=== PATIENT | male | born 1990 | race Caucasian/White ===

== ENCOUNTER 2018-12-13 13:55 | Emergency (ER) | payer MEDICAID ==
[~2018-12-13] VITALS: Ht 175.3 cm; Wt 77.3 kg
[2018-12-13 14:01] VITALS: BP 142/87; Ht 175.3 cm; Wt 77.3 kg
[2018-12-13 14:27] LABS: BASOPHILS 0.8 % (0-2); EOSINOPHILS 2.8 % (0-7); HEMATOCRIT 44.4 % (42.0-54.0); HEMOGLOBIN 14.9 g/dL (13.5-17.5); IMMATURE GRANULOCYTES 3.2 % (0-5); LYMPHOCYTES 20.7 % (15-50); MCH 30.3 pg (26.0-34.0); MCHC 33.6 g/dL (31.0-37.0); MCV 90.2 fL (80.0-100.0); MEAN PLATELET VOLUME 11.7 fL (7.4-10.4); MONOCYTES 9.9 % (2-11); NEUTROPHILS 62.6 % (40-80); RBC 4.92 10x6/uL (4.20-6.10); RDW 13.1 % (11.5-14.5); WBC 9.8 10x3/uL (4.8-10.8)
[2018-12-13 14:29] LABS: PLATELET COUNT 218 10x3/uL (130-400)
[2018-12-13 14:40] LABS: ALBUMIN 3.6 g/dL (3.4-5.0); ALKALINE PHOSPHATASE 51 U/L (46-116); ALT (SGPT) 117 U/L (10-68); BILIRUBIN - TOTAL 0.22 mg/dL (0.2-1.3); CALC OSMOLALITY 286 mosm/kg (275-300); CALCIUM 8.5 mg/dL (8.5-10.1); CARBON DIOXIDE 26.7 mmol/L (21.0-32.0); CHLORIDE - SERUM 104 mmol/L (98-107); CREATININE - SERUM 0.9 mg/dL (0.6-1.3); GLUCOSE 110 mg/dL (74-106); PROTEIN - SERUM 7.5 g/dL (6.4-8.2); SODIUM 142 mmol/L (136-145); UREA NITROGEN 20 mg/dL (7-18); eGFR NON AFRICAN AMERICAN > 90 mL/min (90-120)
[2018-12-13] MEDS ORDERED: ZPAK PO (17:10)
[2018-12-13] MEDS ORDERED: ALBUTEROL SULF8.5 GM INH (17:10)
== END 2018-12-13 17:40 | disposition home or self-care (01) ==
LOC: D.ER 13:55
PROVIDERS: Family Medicine
DX: J40 Bronchitis, not specified as acute or chronic (principal)

== ENCOUNTER 2019-08-23 13:15 | Emergency (ER) | payer SELFPAY ==
[~2019-08-23] VITALS: Ht 175.3 cm; Wt 75.0 kg
[~2019-08-23 13:15] MED LIST: ALBUTEROL SULF8.5 GM INH; ZPAK PO
[2019-08-23 13:29] VITALS: Ht 175.3 cm; Wt 75.0 kg
[2019-08-23 14:05] VITALS: BP 121/66
== END 2019-08-23 14:06 | disposition home or self-care (01) ==
LOC: D.ER 13:15
DX: M21.942 Unspecified acquired deformity of hand, left hand (principal); M25.512 Pain in left shoulder; W19.XXXA Unspecified fall, initial encounter

== ENCOUNTER 2019-10-12 17:56 | Emergency (ER) | payer SELFPAY ==
[~2019-10-12] VITALS: Ht 175.3 cm; Wt 68.2 kg
[2019-10-12 17:59] VITALS: BP 115/77; Ht 175.3 cm; Wt 68.2 kg
[2019-10-12] MEDS ORDERED: TORADOL10 MG PO (18:50)
== END 2019-10-12 19:25 | disposition home or self-care (01) ==
LOC: D.ER 17:56
DX: S62.202A Unspecified fracture of first metacarpal bone, left hand, initial encounter for closed fracture (principal); X58.XXXA Exposure to other specified factors, initial encounter; Y93.9 Activity, unspecified; Y92.149 Unspecified place in prison as the place of occurrence of the external cause

== ENCOUNTER 2020-04-04 10:52 | Emergency (ER) | payer SELFPAY ==
[~2020-04-04] VITALS: Ht 175.3 cm; Wt 72.7 kg
[~2020-04-04 10:52] MED LIST changes: +TORADOL10 MG PO
[2020-04-04 10:58] VITALS: Ht 175.3 cm; Wt 72.7 kg
[2020-04-04] MEDS ORDERED: HYDROCODON-ACE1 EAC7 PO (12:14)
[2020-04-04] MEDS ORDERED: AUGMENTIN 875-11 TAB PO (12:14)
[2020-04-04 12:39] VITALS: BP 105/50
== END 2020-04-04 12:39 | disposition home or self-care (01) ==
LOC: D.ER 10:52
DX: S61.211A Laceration without foreign body of left index finger without damage to nail, initial encounter (principal); W31.89XA Contact with other specified machinery, initial encounter; Y93.9 Activity, unspecified; Y92.9 Unspecified place or not applicable

== ENCOUNTER 2021-03-04 16:00 | Emergency (ER) | payer SELFPAY ==
[~2021-03-04] VITALS: Ht 175.3 cm; Wt 72.7 kg
[~2021-03-04 16:00] MED LIST changes: +AUGMENTIN 875-11 TAB PO; +HYDROCODON-ACE1 EAC7 PO
[2021-03-04 16:08] VITALS: Ht 175.3 cm; Wt 72.7 kg
[2021-03-04 16:26] LABS: BASOPHILS 0.6 % (0-2); EOSINOPHILS 1.3 % (0-7); HEMATOCRIT 43.3 % (42.0-54.0); HEMOGLOBIN 14.4 g/dL (13.5-17.5); IMMATURE GRANULOCYTES 2.2 % (0-5); LYMPHOCYTE ABS# 1.99 10x3/uL (1.32-3.57); LYMPHOCYTES 29.6 % (15-50); MCH 30.2 pg (26.0-34.0); MCHC 33.3 g/dL (31.0-37.0); MCV 90.8 fL (80.0-100.0); MEAN PLATELET VOLUME 11.8 fL (7.4-10.4); MONOCYTES 14.4 % (2-11); NEUTROPHIL ABS# 3.49 10x3/uL (1.78-5.38); NEUTROPHILS 51.9 % (40-80); PLATELET COUNT 196 10x3/uL (130-400); RBC 4.77 10x6/uL (4.20-6.10); RDW 13.6 % (11.5-14.5); WBC 6.7 10x3/uL (4.8-10.8)
[2021-03-04 16:38] LABS: CALC OSMOLALITY 286 mosm/kg (275-300); CALCIUM 8.2 mg/dL (8.5-10.1); CARBON DIOXIDE 30.5 mmol/L (21.0-32.0); CHLORIDE - SERUM 106 mmol/L (98-107); CREATININE - SERUM 1.1 mg/dL (0.6-1.3); GLUCOSE 140 mg/dL (74-106); POTASSIUM - SERUM 3.9 mmol/L (3.5-5.1); SODIUM 143 mmol/L (136-145); UREA NITROGEN 12 mg/dL (7-18); eGFR NON AFRICAN AMERICAN 83 mL/min (90-120)
[2021-03-04 16:47] LABS: BILIRUBIN 1+ (NEGATIVE); KETONE NEGATIVE (NEGATIVE); NITRITE NEGATIVE (NEGATIVE); UROBILINOGEN NORMAL mg/dL (< 2)
[2021-03-04 16:49] LABS: ALKALINE PHOSPHATASE 180 U/L (30-120); ALT (SGPT) 2198 U/L (10-68); AMYLASE - SERUM 30 U/L (25-115); BILIRUBIN - TOTAL 5.37 mg/dL (0.2-1.3); LIPASE 40 U/L (73-393); PROTEIN - SERUM 6.7 g/dL (6.4-8.2)
[2021-03-04] MEDS ORDERED: IMODIUM2 MG PO (16:59)
[2021-03-04] MEDS ORDERED: ONDANSETRON HCL8 MG PO (16:59)
[2021-03-04 17:10] VITALS: BP 104/60
== END 2021-03-04 17:10 | disposition home or self-care (01) ==
LOC: D.ER 16:00
PROVIDERS: Emergency Medicine
DX: B15.9 Hepatitis A without hepatic coma (principal); R19.7 Diarrhea, unspecified; R11.0 Nausea